=== PATIENT | male | born 1990 | race Caucasian/White ===

== ENCOUNTER 2022-02-01 08:15 | Emergency (ER) | payer OTHER ==
[~2022-02-01] VITALS: Ht 180.3 cm; Wt 87.5 kg
[~2022-02-01 08:15] MED LIST: IBUPROFEN600 MG PO; LEXAPRO20 MG PO; REMERON30 MG PO
[2022-02-01] MEDS ORDERED: POLYTRIM EYE DR10 ML OD (10:09)
== END 2022-02-01 10:22 | disposition home or self-care (01) ==
LOC: ED 08:15
DX: T15.01XA Foreign body in cornea, right eye, initial encounter (principal); X58.XXXA Exposure to other specified factors, initial encounter; Z79.899 Other long term (current) drug therapy
CPT/HCPCS: 65222; 99283-25

== ENCOUNTER 2024-06-17 10:54 | Emergency (ER) | payer OTHER ==
[~2024-06-17 10:54] MED LIST changes: +POLYTRIM EYE DR10 ML OD
[2024-06-17] MEDS ORDERED: ALL DAY ALLERGY10 M3 PO (11:09)
[2024-06-17] MEDS ORDERED: VITAMIN B-121000 MC3 PO (11:12)
[2024-06-17] MEDS ORDERED: UREA85 G1 TOP (11:12)
[2024-06-17 12:36] VITALS: BP 130/93
== END 2024-06-17 11:45 | disposition home or self-care (01) ==
LOC: ED 10:54
DX: S51.812A Laceration without foreign body of left forearm, initial encounter (principal); W29.8XXA Contact with other powered hand tools and household machinery, initial encounter
CPT/HCPCS: 12002; 99283